=== PATIENT | female | born 1955 | race Caucasian/White ===

== ENCOUNTER 2019-03-18 15:35 | Outpatient (REF) | payer BC, OTHER, SELFPAY | END 2019-03-18 15:55 | LOC: LBN 15:35 | PROVIDERS: PCP Family Medicine; Visit Provider Nurse Practitioner Gerontology | DX: N39.0 Urinary tract infection, site not specified (principal) | CPT/HCPCS: 87077; 87086; 87186 ==

== ENCOUNTER 2020-09-05 10:19 | Outpatient (CLI) | payer OTHER, BC, SELFPAY ==
--- NOTE | 2020-09-05 10:00 | DI.RAD_ITS ---
EXAM: XR ANKLE LT COMPLETE CLINICAL HISTORY: lt ankle pain TECHNIQUE: 2D digital imaging was performed. COMPARISON: CR XR ANKLE COMPLETE MIN 3V RT from 05/31/2020 FINDINGS: BONES: No acute fracture is present. No bony destructive lesion is seen. There is a small calcaneal spur. The bones are osteopenic. JOINTS:The ankle mortise is normally aligned. SOFT TISSUE: Generalized soft tissue swelling of the ankle. IMPRESSION: No acute fracture or dislocation. DATA REPOSITORY: RADIATION DOSE DELIVERED:
== END 2020-09-05 10:39 ==
PROVIDERS: PCP Family Medicine; Referring Provider Family Medicine; Visit Provider Physician Assistant Surgical
DX: M25.572 Pain in left ankle and joints of left foot (principal)
CPT/HCPCS: 73610